=== PATIENT | male | born 1955 | race Two or more races ===

== ENCOUNTER 2024-03-07 11:25 | Inpatient (IN) | payer MEDICARE, OTHER, SELFPAY ==
[2024-03-04 09:17] LABS: Hematocrit 42.8 % (39.0-52.0); Hemoglobin 14.6 g/dL (13.0-18.0); Mean Corp Hgb Conc. 34.1 g/dL (33.0-37.0); Mean Corpuscular Hgb 30.5 pg (27.0-31.0); Mean Corpuscular Volume 89.4 fL (80.0-94.0); Mean Platelet Volume 10.2 fL (7.4-10.4); Platelet Count 198 10^3/uL (130-400); Red Blood Cell Count 4.79 10^6/uL (4.70-6.10); Red Cell Dist. Width 13.2 % (11.5-14.5); White Blood Cell Count 6.4 10^3/uL (4.8-10.8)
[2024-03-04 09:27] LABS: INR 0.97; PT 12.7 Sec (11.4-14.6)
[2024-03-04 09:28] LABS: APTT 29.9 Sec (23.4-35.0)
[2024-03-04 09:31] VITALS: BMI 31.3
[2024-03-04 10:00] LABS: Glycohemoglobin (HgbA1c) 4.8 % (4.0-5.6)
[2024-03-04 10:00] LABS: ALT (SGPT) 33 U/L (0-50); AST (SGOT) 30 U/L (17-59); Albumin 4.2 g/dl (3.5-5.0); Alkaline Phosphatase 90 U/L (38-126); Blood Urea Nitrogen 24 mg/dl (9-20); Calcium 9.3 mg/dl (8.4-10.2); Carbon Dioxide 30 mmol/L (22-30); Chloride 100 mmol/L (98-107); Estimated Creatinine Clearance 92 ml/min; Glucose 79 mg/dl (70-99); Potassium 4.4 mmol/L (3.5-5.1); Sodium 142 mmol/L (135-145); Total Bilirubin 0.8 mg/dl (0.2-1.3); Total Protein 6.5 g/dl (6.3-8.2); eGFR > 60.00
[2024-03-07] VITALS (14 sets, daily range): BP systolic 142–175; BP diastolic 82–96; BMI 31.3
[2024-03-07] MEDS: ENTEREG 12 MG PO (11:13)
[2024-03-07] MEDS: TYLENOL 1000 MG PO (11:13)
[2024-03-07] MEDS: HEPARIN 5000 UNITS SC (11:13)
--- NOTE | 2024-03-07 16:19 | W.IMMPOSTOP ---
Surgical Immed Post Op Note
-
Primary Surgeon: Cliff Rapp MD
Change Advisor: MARLEY Rivera
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
Post-op Diagnosis: Same
Procedure Performed: Robotic right colectomy with intracorporeal anastomosis
Anesthesia Type: GET
Specimen / Cultures: Right colon
Estimated Blood Loss: 15cc
Complications: None
Operative Findings: No evidence of metastatic disease
Ink and polypoid lesion at the hepatic flexure
Bilateral indirect inguinal hernias
Patient's daughter updated.
[2024-03-07] MEDS: TORADOL 15 MG IV ×2 (17:42→23:01)
[2024-03-07] MEDS: NORMOSOL-R/PLASMALYTE-A 1000 IV (17:53)
--- NOTE | 2024-03-07 18:16 | PTCARENOTE ---
Patient received from PACU in bed; IVF infusing; Patient on 2L nasal cannula, oxygen saturation 97%; Patient drowsy but oriented to self, place, and time; Patient arousable to voice and tactile stimulation; Patient denies pain, nausea, and vomiting
at this time; Surgical site assessed with INDUSTRIAL/ORGANIZATIONAL PSYCHOLOGIST, four abdominal laparoscopic sites and one low transverse incision open to air with surgical glue present; Indwelling urinary catheter draining clear yellow urine; Call rivera within reach; Patient
oriented to room and unit; Bed in lowest position, wheels locked; Assessment ongoing
[2024-03-07] MEDS: COREG 25 MG PO (20:52)
[2024-03-07] MEDS: TYLENOL 650 MG PO (20:52)
[2024-03-07] MEDS: CRESTOR 40 MG PO (20:52)
[2024-03-07] MEDS: TYLENOL PO (23:46)
[2024-03-08 03:28] VITALS: BP 141/80
[2024-03-08] MEDS: NORMOSOL-R/PLASMALYTE-A 1000 IV (03:28)
[2024-03-08] MEDS: TYLENOL PO ×3 (04:10→23:00)
[2024-03-08] MEDS: TORADOL 15 MG IV ×4 (05:06→22:59)
[2024-03-08 06:00] VITALS: BMI 29.8
[2024-03-08 07:29] LABS: % Basophils 0.2 % (0-2); % Immature Granulocytes 0.3 % (0-0.5); % Lymphocytes 6.1 % (20.5-51.1); % Monocytes 5.3 % (1.7-9.3); % Neutrophils 88.1 % (42.2-75.2); Absolute Lymphocytes 0.8 10^3/uL (1.2-3.4); Absolute Monocytes 0.7 10^3/uL (0.1-0.6); Hematocrit 40.2 % (39.0-52.0); Mean Corp Hgb Conc. 34.8 g/dL (33.0-37.0); Mean Corpuscular Hgb 30.2 pg (27.0-31.0); Mean Corpuscular Volume 86.6 fL (80.0-94.0); Mean Platelet Volume 10.2 fL (7.4-10.4); Nucleated Red Blood Cells % 0 % (-); Platelet Count 202 10^3/uL (130-400); Red Blood Cell Count 4.64 10^6/uL (4.70-6.10); Red Cell Dist. Width 13.2 % (11.5-14.5); White Blood Cell Count 12.4 10^3/uL (4.8-10.8)
[2024-03-08 07:57] LABS: Blood Urea Nitrogen 25 mg/dl (9-20); Calcium 8.7 mg/dl (8.4-10.2); Carbon Dioxide 25 mmol/L (22-30); Chloride 105 mmol/L (98-107); Estimated Creatinine Clearance 81 ml/min; Glucose 111 mg/dl (70-99); Potassium 3.9 mmol/L (3.5-5.1); Sodium 141 mmol/L (135-145); eGFR > 60.00
[2024-03-08 08:11] VITALS: BP 137/78
[2024-03-08] MEDS: DIOVAN 320 MG PO (08:19)
[2024-03-08] MEDS: COREG 25 MG PO ×2 (08:19→20:40)
[2024-03-08] MEDS: ORETIC 25 MG PO (08:20)
[2024-03-08] MEDS: ZOLOFT 100 MG PO (08:21)
[2024-03-08] MEDS: ENTEREG 12 MG PO ×2 (08:21→20:41)
[2024-03-08] MEDS: TYLENOL 650 MG PO ×3 (08:21→17:24)
[2024-03-08 11:43] VITALS: BP 133/76
--- NOTE | 2024-03-08 13:21 | W.PN.CRS1 ---
Today's Communication / Plan
-
d/c [facility]
full liquids
lovenox
Assessment/Plan
-
POD#1 Robotic right colectomy with intracorporeal anastomosis
-Labs normal. WBC elevated, as expected post op. Will trend.
-OOB as tolerated
-Start lovenox for DVT prophylaxis. TEDS/SCDS in place.
-Advance diet to fulls.
-D/C [facility]
-DC IVFs when tolerating po
-OR pathology pending
Subjective Data
Procedure
03/07- Robotic right colectomy with intracorporeal anastomosis
Subjective Data
Date of Service: March 08, 2024
Patient states he feels well. He has flatus and mild gas pains. He has some lower incisional pain when he moves. He denies nausea or vomiting. He has been tolerating clears.
Objective Data
-
Vital Signs
Temp Pulse Resp BP Pulse Ox
98.1 F 59 16 133/76 97
03/08/24 11:43 03/08/24 11:43 03/08/24 11:43 03/08/24 11:43 03/08/24 11:43
Intake & Output
03/07/24 03/08/24 03/09/24
06:59 06:59 05:59
Intake Total 1640 / 1640
Output Total 500 / 500
Balance 1140 / 1140
Intake:
Oral fluids 480 / 480
IV fluids (Total) 1160 / 1160
Normosol 200 / 200
Output:
Urine, [facility] 500 / 500
Lab Results
03/08/24 06:38
03/08/24 06:38
Physical Exam
-
General: No Acute Distress and AOx3
Abdomen: Soft, Non Distended and Non Tender
Skin: Warm and Dry
Incision: Clear, Dry, Intact
[2024-03-08 16:02] VITALS: BP 127/69
[2024-03-08] MEDS: LOVENOX 40 MG SC (17:25)
[2024-03-08] MEDS: CRESTOR 40 MG PO (20:42)
[2024-03-08 23:07] VITALS: BP 122/71
[2024-03-09] MEDS: TYLENOL PO (05:57)
[2024-03-09] MEDS: TORADOL 15 MG IV ×2 (06:00→12:48)
[2024-03-09 07:02] LABS: % Basophils 0.4 % (0-2); % Eosinophils 0.4 % (0-6); % Immature Granulocytes 0.4 % (0-0.5); % Lymphocytes 11.3 % (20.5-51.1); % Monocytes 4.7 % (1.7-9.3); % Neutrophils 82.8 % (42.2-75.2); Absolute Monocytes 0.4 10^3/uL (0.1-0.6); Absolute Neutrophils 7.6 10^3/uL (1.4-6.5); Hematocrit 40.7 % (39.0-52.0); Hemoglobin 13.9 g/dL (13.0-18.0); Mean Corp Hgb Conc. 34.2 g/dL (33.0-37.0); Mean Corpuscular Hgb 29.3 pg (27.0-31.0); Mean Corpuscular Volume 85.9 fL (80.0-94.0); Mean Platelet Volume 9.4 fL (7.4-10.4); Nucleated Red Blood Cells % 0 % (-); Platelet Count 188 10^3/uL (130-400); Red Blood Cell Count 4.74 10^6/uL (4.70-6.10); Red Cell Dist. Width 13.2 % (11.5-14.5); White Blood Cell Count 9.2 10^3/uL (4.8-10.8)
[2024-03-09 07:23] LABS: Blood Urea Nitrogen 29 mg/dl (9-20); Calcium 8.9 mg/dl (8.4-10.2); Carbon Dioxide 29 mmol/L (22-30); Chloride 103 mmol/L (98-107); Estimated Creatinine Clearance 90 ml/min; Glucose 95 mg/dl (70-99); Sodium 141 mmol/L (135-145); eGFR > 60.00
[2024-03-09 07:44] VITALS: BP 149/86
[2024-03-09] MEDS: DIOVAN 320 MG PO (08:11)
[2024-03-09] MEDS: ZOLOFT 100 MG PO (08:11)
[2024-03-09] MEDS: COREG 25 MG PO (08:12)
[2024-03-09] MEDS: TYLENOL 650 MG PO ×2 (08:12→12:48)
[2024-03-09] MEDS: ORETIC 25 MG PO (08:12)
[2024-03-09] MEDS: ENTEREG 12 MG PO (08:13)
--- NOTE | 2024-03-09 10:48 | W.PN.CRS1 ---
Today's Communication / Plan
-
low residue
d/c if tolerates
Assessment/Plan
-
POD#2 Robotic right colectomy with intracorporeal anastomosis
-Labs normal. WBC normalized.
-OOB as tolerated
-Lovenox for DVT prophylaxis. TEDS/SCDS in place.
-Advance diet to low residue
-Voiding post solis removal
-OR pathology pending
-Okay for discharge if tolerates low residue. All discharge instructions discussed with the patient. All questions answered.
Subjective Data
Procedure
03/07- Robotic right colectomy with intracorporeal anastomosis
Subjective Data
Date of Service: March 09, 2024
Patient states he feels well. His pain is controlled. He has no nausea or vomiting. He has no complaints and would like to go home.
Objective Data
-
Vital Signs
Temp Pulse Resp BP Pulse Ox
98.0 F 57 14 149/86 96
03/09/24 07:44 03/09/24 08:12 03/09/24 07:44 03/09/24 08:12 03/09/24 07:44
Intake & Output
03/08/24 03/09/24 03/10/24
07:59 06:59 06:59
Intake Total
Output Total
Balance
Intake:
Oral fluids
IV fluids (Total)
Normosol
Output:
Urine, [facility]
Urine, Voided
Other:
Number of approximated SMALL
amounts of urine
Lab Results
03/09/24 06:32
03/09/24 06:32
Physical Exam
-
General: No Acute Distress and AOx3
Abdomen: Soft, Non Distended and Non Tender
Skin: Warm and Dry
Incision: Clear, Dry, Intact
--- NOTE | 2024-03-09 10:57 | W.DS.TRANS ---
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
-
Discharge Instructions:
Sleep Apnea Risk Intermediate
Discharge Diagnosis/Procedures Robotic right colectomy with intracorporeal
anastomosis
Diet Low Residue
Activity No strenuous activity
Additional Activity No lifting over 10lbs (gallon of milk)
Driving Restrictions No driving for 1 week
Bathing Restrictions OK to Shower
Wound Care Allow glue to naturally fall off. Do not pick at
incisions.
Instructions: Low Fiber Diet
Stand-Alone Forms:
Changes to Home Medications: Yes
Discharge Medications:
DC Medications w/original date entered in [employer]
carvedilol 25 mg tablet (Coreg) 25 mg PO BID Blood Pressure 02/29/24
rosuvastatin 40 mg tablet 40 mg PO HS High Cholesterol 02/29/24
semaglutide (weight loss) 2.4 mg/0.75 mL subcutaneous pen injector 2.4 mg SC QWEEK Weight Gain 02/29/24
sertraline 100 mg tablet 100 mg PO DAILY Mental Health/Anxiety 02/29/24
tadalafil 2.5 mg tablet 2.5 mg PO HS ED/PHTN 02/29/24
valsartan 320 mg-hydrochlorothiazide 25 mg tablet 1 tab PO DAILY Blood Pressure 02/29/24
tramadol 25 mg tablet 25 mg PO Q6H PRN Pain #20 tabs 03/09/24
Home Medication Changes
tramadol 25 mg tablet 25 mg PO Q6H PRN Pain #20 tabs 03/09/24
Pending Results: Yes
Additional Pending Results:
OR pathology
--- NOTE | 2024-03-09 11:53 | CM ---
CM reviewed chart. DC order noted. Discussed w/RN. Pt witnessed to be Iw/amb and adls in room. No skilled discharge planning needs noted at this time. Pt to arrange transport. Pt clear to dc from a CM/SW standpoint.
[2024-03-09 13:08] VITALS: BP 142/76
[2024-03-10 19:09] LABS: Hepatitis C Antibody Negative (Negative)
== END 2024-03-09 13:45 | disposition home or self-care (01) | DRG 331 ==
LOC: 2 SOUTH 11:25
PROVIDERS: Physician Assistant; ADMITTING PHYSICIAN Surgery; FAMILY PHYSICIAN Family Medicine; REFERRING PHYSICIAN Internal Medicine Cardiovascular Disease
PROC: 0DTF4ZZ Resection of Right Large Intestine, Percutaneous Endoscopic Approach (ICD-10-PCS; 2024-03-07)
DX: K63.5 Polyp of colon (principal); K40.20 Bilateral inguinal hernia, without obstruction or gangrene, not specified as recurrent; D12.2 Benign neoplasm of ascending colon
CPT/HCPCS: 88307; 88309; 36415; 80048; 80053; 82378; 83036; 85025; 85027; 85610; 85730; 86803; 86850; 86900; 86901; 88313; 88341; 88342; J1335